=== PATIENT | female | born 1980 | race Caucasian/White ===

== ENCOUNTER → 2025-02-17 | Outpatient (CLI) | payer OTHER | LOC: M OUTALCOH 12:25 | PROVIDERS: ATTEND Psychiatry & Neurology Psychiatry | DX: F10.10 Alcohol abuse, uncomplicated (principal); F17.200 Nicotine dependence, unspecified, uncomplicated ==

== ENCOUNTER 2025-03-06 11:08 | Outpatient (RCR) | payer OTHER | END 2025-03-26 | LOC: M OUTALCOH 11:08 | PROVIDERS: ATTEND Psychiatry & Neurology Psychiatry | DX: F10.10 Alcohol abuse, uncomplicated (principal); F17.200 Nicotine dependence, unspecified, uncomplicated ==

== ENCOUNTER → 2025-04-28 | Outpatient (CLI) | payer OTHER | LOC: M OUTALCOH 12:30 → EDSTATUS 12:30 | PROVIDERS: ATTEND Psychiatry & Neurology Psychiatry | DX: F10.20 Alcohol dependence, uncomplicated (principal); F17.200 Nicotine dependence, unspecified, uncomplicated ==

== ENCOUNTER 2025-05-18 15:00 | Outpatient (RCR) | payer OTHER | END 2025-05-26 | LOC: M OUTALCOH 15:00 | PROVIDERS: ATTEND Psychiatry & Neurology Psychiatry | DX: F10.10 Alcohol abuse, uncomplicated (principal); F17.200 Nicotine dependence, unspecified, uncomplicated | CPT/HCPCS: G0397 ×2 ==

== ENCOUNTER 2025-06-19 14:00 | Outpatient (RCR) | payer OTHER | END 2025-06-25 | LOC: M OUTALCOH 14:00 | PROVIDERS: ATTEND Psychiatry & Neurology Psychiatry | DX: F10.10 Alcohol abuse, uncomplicated (principal); F17.200 Nicotine dependence, unspecified, uncomplicated ==

== ENCOUNTER 2025-07-17 15:04 | Outpatient (RCR) | payer OTHER | END 2025-07-26 | LOC: M OUTALCOH 15:04 | PROVIDERS: ATTEND Psychiatry & Neurology Psychiatry | DX: F10.20 Alcohol dependence, uncomplicated (principal); F17.200 Nicotine dependence, unspecified, uncomplicated ==